=== PATIENT | female | born 1985 | race Caucasian/White ===

== ENCOUNTER 2022-01-11 09:16 | Outpatient (CLI) | payer BC, SELFPAY ==
[2022-01-11 19:46] LABS: Basophils Absolute Auto 0.1 K/mm3 (0.0-0.1); Basophils Percent Auto 0.6 % (0.2-1.2); Eosinophils Absolute Auto 0.1 K/mm3 (0-0.3); Eosinophils Percent Auto 0.6 % (0-4.4); Hematocrit 43.4 % (37.0-47.0); Immature Granulocyte Absolute 0.02 K/mm3 (0.00-0.031); Immature Granulocyte Percent A 0.2 % (0-0.5); Lymphocytes Absolute Auto 3.76 K/mm3 (0.9-3.2); Lymphocytes Percent Auto 44.5 % (18.3-44.2); Mean Corpuscular HGB Conc 32.3 g/dl (32-36); Mean Corpuscular Hemoglobin 29.6 pg (26-34); Mean Corpuscular Volume 91.8 fl (80-100); Mean Platelet Volume 10.3 fl (7.4-10.4); Monocytes Absolute Auto 0.5 K/mm3 (0.1-0.6); Monocytes Percent Auto 6.3 % (2.6-8.5); Neutrophils Percent Auto 47.8 % (45.5-73.1); Platelet Count Result 238 k/mm3 (150-375); Red Blood Count 4.73 M/mm3 (4.2-5.4); Red Cell Distribution Width 13.6 % (11.5-14.5); White Blood Count 8.5 K/mm3 (4.5-10.0)
[2022-01-11 19:47] LABS: Alanine Aminotransferase 35 U/L (6-35); Albumin Level 3.9 g/dL (3.5-5.1); Alkaline Phosphatase 81 U/L (38-126); Anion Gap 7 mmol/L (8-16); Aspartate Amino Transferase 43 U/L (14-36); Bilirubin,Total 0.3 mg/dL (0.2-1.3); Blood Urea Nitrogen 11 mg/dL (7-17); Calcium 9.9 mg/dL (8.4-10.2); Carbon Dioxide 28 mmol/L (22-30); Chloride 105 mmol/L (98-107); Cholesterol 203 mg/dL (0-200); Estimated Glomerular Filt Rate > 60; Glucose 111 mg/dL (65-110); HDL Direct 39 mg/dL; Potassium 4.4 mmol/L (3.4-5.0); Sodium 140 mmol/L (137-145); Triglycerides 208 mg/dL (<150)
[2022-01-11 19:58] LABS: LDL Cholesterol Direct 137 mg/dL
[2022-01-11 20:17] LABS: Hemoglobin A1C 5.6 % (<5.7)
[2022-01-11 21:44] LABS: Free T4 Free Thyroxine Reflex 1.06 ng/dL (0.78-2.19)
[2022-01-11 22:39] LABS: Total Triiodothyronine (T3) 1.62 NG/ML (0.97-1.69)
== END 2022-01-11 09:17 | disposition home or self-care (01) ==
PROVIDERS: PCP Family Medicine; Visit Provider Family Medicine
DX: R53.83 Other fatigue (principal); Z13.228 Encounter for screening for other metabolic disorders; R73.09 Other abnormal glucose; Z13.220 Encounter for screening for lipoid disorders
CPT/HCPCS: 36415; 80053; 80061; 83036; 84439; 84443; 84480; 85025

== ENCOUNTER 2023-01-16 09:47 | Outpatient (CLI) | payer BC, SELFPAY ==
[2023-01-16 19:22] LABS: Alanine Aminotransferase 20 U/L (6-35); Albumin Level 3.7 g/dL (3.5-5.1); Alkaline Phosphatase 65 U/L (38-126); Anion Gap 6 mmol/L (8-16); Aspartate Amino Transferase 35 U/L (14-36); Bilirubin,Total 0.5 mg/dL (0.2-1.3); Blood Urea Nitrogen 10 mg/dL (7-17); Calcium 9.3 mg/dL (8.4-10.2); Carbon Dioxide 23 mmol/L (22-30); Chloride 107 mmol/L (98-107); Cholesterol 198 mg/dL (0-200); Estimated Glomerular Filt Rate > 60; Glucose 108 mg/dL (65-110); HDL Direct 47 mg/dL; Potassium 3.7 mmol/L (3.4-5.0); Sodium 136 mmol/L (137-145); Triglycerides 247 mg/dL (<150)
[2023-01-16 19:33] LABS: LDL Cholesterol Direct 105 mg/dL
[2023-01-16 19:48] LABS: Free T4 Free Thyroxine 0.97 ng/mL (0.78-2.19); Vitamin D 25 Hydroxy 53.4 ng/mL
[2023-01-16 21:08] LABS: Hemoglobin A1C 5.3 % (<5.7)
== END 2023-01-16 09:48 | disposition home or self-care (01) ==
LOC: ANHGOSHLAB 09:49
PROVIDERS: PCP Family Medicine; Visit Provider Family Medicine
DX: E03.9 Hypothyroidism, unspecified (principal); Z13.220 Encounter for screening for lipoid disorders; Z13.228 Encounter for screening for other metabolic disorders; E55.9 Vitamin D deficiency, unspecified; R73.09 Other abnormal glucose
CPT/HCPCS: 36415; 80053; 80061; 82306; 83036; 84439; 84443

== ENCOUNTER 2023-08-26 08:54 | Outpatient (CLI) | payer BC, SELFPAY ==
--- NOTE | 2023-09-02 15:52 | WPDHOMESLEEP ---
Sleep Study - Home Unattended Date of Study: 08/26/23 Ordering Provider: Nadir Urban DO Interpreting Provider: Juliet Mejía DO Home Sleep Study Type: Watch PAT Height: 1.68 m Weight: 151.953 kg Body Mass Index: 54.1 Neck Circumference (inches): 16 [place]: 3 Reason for Sleep Study Unrefreshing sleep Sleep History The patient is a 38 year old female with anxiety, depression and morbid obesity that had a sleep study ordered by her primary care physician for evaluation of sleep apnea. The patient rarely awakens from sleep short of breath. She occasionally awakens at night with heartburn, belching or cough. She frequently snores and is frequently loud enough that others complain. She frequently has trouble sleeping when she has a cold. She denies waking up gasping for air throughout the night. She occasionally has breathing problems at night observed by herself or others. She occasionally sweats excessively at night. She rarely has heart palpitations or irregular heartbeats during the night. She occasionally falls asleep during the day but never while driving. She denies sleep paralysis and cataplexy. She occasionally has trouble at school or work due to sleepiness. She rarely experiences vivid dreamlike scenes upon awakening or falling asleep. She denies feeling afraid of going to sleep. She rarely has nightmares. She rarely remembers her dreams. She frequently has thoughts racing through her mind. She constantly feels sad, depressed and anxious. She rarely has muscular tension. She occasionally notices parts of her body jerk. She occasionally kicks during the night. She denies having crawling and aching feelings in her legs and denies having leg pain during the night. She denies grinding her teeth during sleep and denies awakening with morning jaw pain. She is rarely bothered by pain during the day and never awakened by pain during the night. She occasionally wakes up feeling stiff in the morning. She occasionally wakes up with sore or achy muscles. She rarely wakes up with pain in the neck, spine and other joints. She goes to bed at 2:00 a.m. on weekdays and at 6:00 a.m. on the weekends. It takes her about an hour to fall asleep. She wakes up 1-2 times throughout the night for unknown reasons. When she awakens, she will look on her cellphone. It can take several hours for her to fall back asleep. She wakes up at 9:00 a.m. on weekdays and at 11:00 a.m. on the weekends. She typically gets 5-6 hours of sleep per night. She will stay in bed for 30 minutes after waking up in the morning. She currently lives with her . She denies consuming any caffeinated beverages within 2 hours of bedtime. She denies engaging in physical exercise before bedtime. She denies reading before falling asleep. She will watch television before falling asleep. She will take naps in the afternoon or the evening and they are refreshing. She consumes 2 cups of caffeinated beverage per day. She denies tobacco, alcohol and recreational drug use. [facility] Past Medical History Medical History Anxiety and depression Surgical History Surgical History Hx of tonsillectomy Family History Family History Father Diabetes mellitus Family history of Alzheimer's disease, Onset Age: 80 Mother Diabetes mellitus, Onset Age: 79 Hypertension Cerebrovascular accident Family history of cardiovascular disease, Onset Age: 79 Sibling Diabetes mellitus Grandparent Family history of cardiovascular disease Family history of Alzheimer's disease Family history of malignant neoplasm of bone Other Family history of coronary artery disease Social History Social History Smo
[2023-09-02 15:59] VITALS: BMI 54.1
== END 2023-08-27 11:12 | disposition home or self-care (01) ==
LOC: ANHCSM 08:54
PROVIDERS: PCP Family Medicine; Visit Provider Family Medicine
DX: G47.33 Obstructive sleep apnea (adult) (pediatric) (principal)
CPT/HCPCS: 95800

== ENCOUNTER 2024-02-06 15:15 | Outpatient (CLI) | payer BC, SELFPAY ==
--- NOTE | ~2024-02-06 | XR_ITS ---
XR ankle RT min 3V DATE: 02/06/2024 15:29 INDICATION: Right ankle and foot pain TECHNIQUE: 4 views COMPARISON: None FINDINGS: Is soft tissue swelling, greater medially. There is prominent plantar and moderately promin ent posterior calcaneal enthesopathy. No fracture or dislocation of the ankle or disruption of the ankle mortise. No periosteal reaction or bone destruction is detected. IMPRESSION: Soft tissue swelling, greater medially no fracture or dislocation of the ankle Plantar and posterior calcaneal enthesopathy Reviewed, dictated and finalized at location A. IMPRESSION: Soft tissue swelling, greater medially no fracture or dislocation o f the ankle Plantar and posterior calcaneal enthesopathy
== END 2024-02-06 15:16 | disposition home or self-care (01) ==
LOC: GOSHIMG 15:16
PROVIDERS: PCP Family Medicine; Visit Provider Family Medicine
DX: M77.31 Calcaneal spur, right foot (principal)
CPT/HCPCS: 73610

== ENCOUNTER 2024-02-09 12:36 | Outpatient (CLI) | payer BC, SELFPAY ==
[2024-02-09 19:46] LABS: Basophils Percent Auto 0.4 % (0.2-1.2); Eosinophils Absolute Auto 0.1 K/mm3 (0-0.3); Hematocrit 40.5 % (37.0-47.0); Hemoglobin 13.2 g/dL (12.0-15.0); Immature Granulocyte Absolute 0.01 K/mm3 (0.00-0.031); Immature Granulocyte Percent A 0.1 % (0-0.5); Lymphocytes Absolute Auto 2.85 K/mm3 (0.9-3.2); Mean Corpuscular HGB Conc 32.6 g/dl (32-36); Mean Corpuscular Hemoglobin 30.3 pg (26-34); Mean Corpuscular Volume 93.1 fl (80-100); Mean Platelet Volume 9.7 fl (7.4-10.4); Monocytes Absolute Auto 0.4 K/mm3 (0.1-0.6); Monocytes Percent Auto 5.5 % (2.6-8.5); Neutrophils Absolute Auto 3.8 K/mm3 (1.3-6.7); Platelet Count Result 211 k/mm3 (150-375); Red Blood Count 4.35 M/mm3 (4.2-5.4); Red Cell Distribution Width 13.6 % (11.5-14.5); White Blood Count 7.1 K/mm3 (4.5-10.0)
[2024-02-09 19:53] LABS: Alanine Aminotransferase 17 U/L (6-35); Albumin Level 3.7 g/dL (3.5-5.1); Alkaline Phosphatase 62 U/L (38-126); Anion Gap 8 mmol/L (4-12); Aspartate Amino Transferase 20 U/L (14-36); Bilirubin,Total 0.4 mg/dL (0.2-1.3); Blood Urea Nitrogen 13 mg/dL (7-17); Calcium 9.9 mg/dL (8.4-10.2); Carbon Dioxide 25 mmol/L (22-30); Chloride 107 mmol/L (98-107); Cholesterol 191 mg/dL (0-200); Estimated Glomerular Filt Rate > 60; Glucose 94 mg/dL (65-110); HDL Direct 53 mg/dL; Sodium 140 mmol/L (137-145); Triglycerides 285 mg/dL (<150)
[2024-02-09 20:05] LABS: LDL Cholesterol Direct 91 mg/dL
== END 2024-02-09 12:37 | disposition home or self-care (01) ==
LOC: ANHGOSHLAB 12:37
PROVIDERS: PCP Family Medicine; Visit Provider Family Medicine
DX: R53.83 Other fatigue (principal); Z13.220 Encounter for screening for lipoid disorders; Z13.228 Encounter for screening for other metabolic disorders; Z13.29 Encounter for screening for other suspected endocrine disorder
CPT/HCPCS: 36415; 80053; 80061; 84443; 85025